=== PATIENT | female | born 1950 | race Caucasian/White ===

== ENCOUNTER 2022-01-06 13:49 | Emergency (ER) | payer MEDICARE, OTHER ==
[~2022-01-06 13:49] MED LIST: ALLERGY10 MG PO; ASPIRIN CHEWABL81 MG PO; CALTRATE 600 +1 EAC1 PO; CENTRUM SILVER1 EAC1 PO; LEVAQUIN750 M1 PO; LIPITOR20 MG PO; LISINOPRIL-HCT1 EAC1 PO; MEGA RED KRILL OIL PO; METAMUCIL1 DOSE PO; PLAVIX75 MG PO; ULTRAM50 MG PO; VITAMIN E1000 UNI1 PO; [UNRECOGNIZED DRUG - OTHER] PO
[2022-01-06] MEDS ORDERED: KEFLEX250 MG PO (16:52)
== END 2022-01-06 17:02 | disposition home or self-care (01) ==
LOC: FER 13:49
DX: L03.115 Cellulitis of right lower limb (principal); I10 Essential (primary) hypertension
CPT/HCPCS: 93971